=== PATIENT | male | born 1975 | race Caucasian/White ===

== ENCOUNTER 2020-09-17 12:33 | Inpatient (IN) | payer OTHER ==
[~2020-09-17] VITALS: Ht 170.2 cm; Wt 108.7 kg
[2020-09-17 14:23] LABS: BASOPHILS ABSOLUTE AUTO 0.03 K/mm3 (0.00-0.23); BASOPHILS PERCENT AUTO 0 % (0-2); EOSINOPHILS ABSOLUTE AUTO 0.12 K/mm3 (0.00-0.68); EOSINOPHILS PERCENT AUTO 1 % (0-6); Hematocrit 40.4 % (37.0-53.0); Hemoglobin 14.3 g/dL (13.5-17.5); IMMATURE GRAN ABSOLUTE AUTO 0.11 K/mm3 (0.00-0.10); IMMATURE GRAN PERCENT AUTO 1 % (0-1); LYMPHOCYTES PERCENT AUTO 14 % (21-46); MONOCYTES ABSOLUTE AUTO 0.72 K/mm3 (0.16-1.47); MONOCYTES PERCENT AUTO 6 % (4-13); Mean Corpuscular HGB 30.6 pg (26.0-34.0); Mean Corpuscular HGB Conc 35.4 g/dL (31.5-36.5); Mean Corpuscular Volume 87 fL (80-100); NEUTROPHILS ABSOLUTE AUTO 9.79 K/mm3 (1.96-9.15); NEUTROPHILS PERCENT AUTO 78 % (41-73); NRBC ABSOLUTE 0.03 K/mm3 (0.00-0.02); NRBC Auto 0.2 /100 WBC (0.0-0.2); Platelet Count 213 K/mm3 (150-400); RDW Coefficient Variation 12.5 % (11.7-14.2); RDW Standard Deviation 39.5 fL (35.1-46.3); Red Blood Cell Count 4.67 M/mm3 (4.30-5.90); White Blood Cell Count 12.57 K/mm3 (4.00-11.30)
--- NOTE | 2020-09-17 15:30 | NUR ---
1349-PT ARRIVES TO ICU POST PCI. THREE STENTS TO RCA PLACED. AGGRASTAT GTT 0.15MCG/KG/MIN. TR BAND TO RIGHT RADIAL. SLIGHT SWELLING NOTED ABOVE BAND. CHECKED SITE c [place] TECH. PT DROWSY BUT RESPONSES TO VERBAL STIMULI. STATES HE IS FEEING BETTER, DENIES CHEST PAIN. 1415-SWELLING NOTED TO ELBOW. TENDER TO PALPATION. FINGERS WARM, PT REPORTS SENSATION INTACT. CHARGE NURSE NOTIFIED. POOL COORDINATOR CALLED TO REASSESS. 1420-BP CUFF PLACED TO RIGHT FOREARM, INFLATED TO 150 MMHG. 1423- POOL COORDINATOR STAFF AT BEDSIDE. DR ANTONIO NOTIFIED, AT BEDSIDE. 1424 AGGRASTAT GTT PLACED ON STANDBY. DR ANTONIO APPLYING DIRECT PRESSURE. PT C/O INCREASED PAIN. MEDICATED PER EMAR FOR PAIN AND SEDATION. 1440-U/S AT BEDSIDE. 1454- TR BAND PLACED c [address] ML [address] BY [address] CHEN. INSTRUCTIONS TO INFLATE BP CUFF TO UPPER ARM AT 200 MMHG FOR 10 MINS, RELEASE FOR 1 MIN, REPEAT FOR ONE HOUR. 1530-DR JARRELL AT BEDSIDE FOR ASSESSMENT.
--- NOTE | 2020-09-17 16:22 | NUR ---
DR CHEN AT BEDSIDE FOR REASSESSMENT. 1 HOUR COMPLETED OF INFLATION/DEFLATION. TR BAND REMAINS INFLANTED TO 15 ML. REMEASUREMENT OF FOREARM, 34.5 CM, 1 CM LESS THAN AT 1458. PLAN TO CONTINUE TO INFLATE TO 200 MMHG FOR 5 MINUTES, RELEASE FOR 1 MIN. CONTINUE FOR 30 MINUTES. AT THAT TIME, FOLLOW PROTOCOL FOR DEFLATION OF TR BAND 2 HOURS AFTER LAST CYCLE COMPLETE.
[2020-09-17 17:11] LABS: Anion Gap 14 mmol/L (6-16); Blood Urea Nitrogen 9 mg/dL (8-24); Bun/Creatinine Ratio 10.9 (12.0-20.0); CO2, Blood 16 mmol/L (21-32); Calcium, Blood 6.9 mg/dL (8.5-10.1); Chloride, Blood 108 mmol/L (98-108); Creatinine, Blood 0.82 mg/dL (0.60-1.20); Glomerular Filtration Rate >60 (60-); Glucose, Blood 291 mg/dL (70-99); Potassium, Blood 3.2 mmol/L (3.5-5.5); Sodium, Blood 138 mmol/L (136-145)
--- NOTE | 2020-09-17 17:53 | NUR ---
SHIFT SUMMARY PT ADMITTED THIS SHIFT POST PCI. DIFFICULTIES c TR BAND, SEE PREVIOUS NOTE. AT THIS TIME, TR BAND REMAINS INFLATED c 15 ML OF AIR. PLAN TO BEGIN REMOVING AIR AT 1845. FIRMNESS AND SWELLING DECREASED. GOOD WAVEFORM ON RIGHT HAND. PT REPORTS SENSATION INTACT. ABLE TO EXTEND AND RETRACT FINGERS. REPORTS PAIN IMPROVED. DENIES CHEST PAIN. K REPLACED THIS SHIFT. VSS. WILL CONTINUE TO MONITOR UNTIL REPORT TO ONCOMING NURSE.
--- NOTE | 2020-09-17 18:39 | NUR ---
DR GRIFFIN IN ROOM. AT BEDSIDE. STATES PT HAS BEEN NON COMPLIANT c MEDS FOR 4 MONTHS. PT REPORTS METH USE, DENIES IV USE. REQUESTING THAT STAY OVER NIGHT DUE TO ANXIETY.
--- NOTE | 2020-09-17 19:26 | NUR ---
AMA PT ANGRY, STATING HE IS GOING TO LEAVE AMA BECAUSE HE NEEDS A CIGARETTE AND "HAS A PHOBIA ABOUT THESE PLACES". PT REFUSING NICOTENE PATCH. CALLED TO DR. CHEN AND LET HIM KNOW PT IS WANTING TO LEAVE AMA AND THAT HE STILL HAS TR BAND IN PLACE WHICH REMAINS INFLATED WITH 11ML AIR. DR CHEN ASKS TO SPEAK TO PATIENT OVER THE PHONE, PT REFUSING, STATES "I KNOW I'M FUCKING UP BUT I'M DOING IT ANYWAY". DR CHEN ASKS THIS RN TO CALL PRESCRIPTIONS FOR BRILINTA, LIPITOR AND METOPROLOL TO PHARMACY OF PT'S CHOICE, AND TO INSTRUCT HIM TO BUY OVER THE COUNTER ASPIRIN, AND TO REINFORCE TO THE PT THE CRITICAL IMPORTANCE OF TAKING BRILINTA AND ASPIRIN DAILY. DR CHEN STATES TO INSTRUCT THE PT ON HOW TO "SLOWLY DEFLATE THE TR BAND OVER THE NEXT 2 HOURS". THIS RN TO ROOM TO DISCUSS THIS WITH PT AND PT'S AT BEDSIDE. DISCUSSED TR BAND DEFLATION/REMOVAL, AND IMPORTANCE OF TAKING MEDICATIONS PRESCRIBED. RX'S CALLED TO [facility] IN [place]. AMA PAPERWORK DISCUSSED WITH PT AND PT'S .
--- NOTE | 2020-09-17 20:11 | NUR ---
ASSUME CARE/AMA AT SHIFT CHANGE PT WAS STATING HE WAS LEAVING. PT BEGAN PULLING OFF HR MONITOR AND STICKERS STATING HE WANTED A SMOKE AND TO LEAVE THE HOSPITAL. PT WAS INSTRUCTED TO WAIT UNTIL WE COULD GET HIS IV PULLED AND MEDICATION PERSCRIPTIONS CALLED IN. TR BAND WAS STILL IN PLACE WHEN PT LEFT WITH 10ML OF AIR IN BAND. PT WAS INSTRUCTED IN DETAIL HOW TO SAFELY TAKE TR BAND OFF. PT WAS GIVEN CLEAR TEG DRESSING TO PLACE ON SITE WHEN TR BAND WAS OFF. PT WAS EDUCATED ON THE RISKS OF LEAVING AMA AND GIVEN CLEAR INSTRUCTION TO STAY TO BE MONITORED. PT WAS ADAMANT THAT HE WAS GOING TO LEAVE IF HIS COULD NOT STAY. HIM AND HIS WERE TOLD SHE COULD STAY THE NIGHT, PT STILL WANTED TO LEAVE. PT LEFT AMA WITH TR BAND IN PLACE, NO IV ACCESS, AND R WRIST IN ARM BOARD. R RADIAL SITE SHOWED NO BLEEDING, DISCOLORATION, OR HEMATOMA.
== END 2020-09-17 19:38 | disposition left against medical advice (07) | DRG 247 ==
LOC: ER 12:33 → ICUW 12:40
PROVIDERS: ADMIT Internal Medicine Cardiovascular Disease
PROC: 027036Z Dilation of Coronary Artery, One Artery with Three Drug-eluting Intraluminal Devices, Percutaneous Approach (ICD-10-PCS; principal; 2020-09-17)
PROC: B2111ZZ Fluoroscopy of Multiple Coronary Arteries using Low Osmolar Contrast (ICD-10-PCS; 2020-09-17)
PROC: B2151ZZ Fluoroscopy of Left Heart using Low Osmolar Contrast (ICD-10-PCS; 2020-09-17)
DX: I21.19 ST elevation (STEMI) myocardial infarction involving other coronary artery of inferior wall (principal); F17.210 Nicotine dependence, cigarettes, uncomplicated; R45.1 Restlessness and agitation; F15.10 Other stimulant abuse, uncomplicated; E11.22 Type 2 diabetes mellitus with diabetic chronic kidney disease; N18.2 Chronic kidney disease, stage 2 (mild); I25.10 Atherosclerotic heart disease of native coronary artery without angina pectoris; I12.9 Hypertensive chronic kidney disease with stage 1 through stage 4 chronic kidney disease, or unspecified chronic kidney disease; K21.9 Gastro-esophageal reflux disease without esophagitis; E78.5 Hyperlipidemia, unspecified; J44.9 Chronic obstructive pulmonary disease, unspecified; Z53.29 Procedure and treatment not carried out because of patient's decision for other reasons; Z79.4 Long term (current) use of insulin; Z98.890 Other specified postprocedural states; Z79.899 Other long term (current) drug therapy; Z91.14 Patient's other noncompliance with medication regimen
CPT/HCPCS: 76937; 80048; 82947; 84484; 85025; 85347; 93005; 93010; 93306; 93458; 93931; 96374-59; 96375-59; 99152; 99153; 99285-25; A9270; C1725; C1769; C1874; C1887; C1894; C9606; J1644; J2250; J2270; J2405; J2720; J3010; J3246; J3480; J7030; Q9967